=== PATIENT | male | born 1960 | race Two or more races ===

== ENCOUNTER 2020-05-27 14:53 | Emergency (ER) | payer OTHER ==
[~2020-05-27] VITALS: Ht 165.1 cm; Wt 91.6 kg
[~2020-05-27 14:53] MED LIST: CEFADROXIL500 MG PO; DICLOFENAC SODI75 MG PO; KETO10TA2 PO; SINGULAIR10 MG
[2020-05-27] MEDS ORDERED: SKELAXIN800 MG PO (18:11)
[2020-05-27] MEDS ORDERED: KETO10TA2 PO (18:11)
== END 2020-05-27 18:14 ==
LOC: ER 14:53
DX: M62.830 Muscle spasm of back (principal)

== ENCOUNTER 2022-12-21 21:22 | Emergency (ER) | payer OTHER ==
[~2022-12-21] VITALS: Ht 165.1 cm; Wt 95.3 kg
[~2022-12-21 21:22] MED LIST changes: +SKELAXIN800 MG PO
[2022-12-21] MEDS ORDERED: ATENOLOL-CHLORT1 TAB PO (21:52)
[2022-12-21] MEDS ORDERED: THEOPHYLLINE A300 M1 (21:52)
[2022-12-21] MEDS ORDERED: MONTELUKAST SOD10 MG PO (21:52)
[2022-12-21] MEDS ORDERED: VERAPAMIL HCL80 MG PO (21:52)
[2022-12-21] MEDS ORDERED: SYMBICORT 16010.2 GM IH (21:53)
[2022-12-21] MEDS ORDERED: LOSARTAN POTASS50 MG PO (21:53)
[2022-12-21] MEDS ORDERED: ALBUTEROL2.5 MG/3 M IH (21:53)
== END 2022-12-22 02:11 | disposition home or self-care (01) ==
LOC: ER 21:22
DX: J45.901 Unspecified asthma with (acute) exacerbation (principal); Z20.822 Contact with and (suspected) exposure to COVID-19

== ENCOUNTER 2024-12-17 13:12 | Emergency (ER) | payer OTHER ==
[~2024-12-17] VITALS: Ht 165.1 cm; Wt 95.3 kg
[~2024-12-17 13:12] MED LIST changes: +ALBUTEROL2.5 MG/3 M IH; +ATENOLOL-CHLORT1 TAB PO; +LOSARTAN POTASS50 MG PO; +MONTELUKAST SOD10 MG PO; +SYMBICORT 16010.2 GM IH; +THEOPHYLLINE A300 M1; +VERAPAMIL HCL80 MG PO
[2024-12-17] MEDS ORDERED: GUAIFENESIN/DEXTROMETHORPHAN 100MG/10ML BLIST.PACK PO ONE (15:45)
[2024-12-17] MEDS ORDERED: IPRATROPIUM/ALBUTEROL SULFATE 3 ML AMPUL.NEB IH SCH (15:45)
[2024-12-17] MEDS ORDERED: METHYLPREDNISOLONE SOD SUCC 125 MG VIAL IV ONE (15:45)
[2024-12-17 16:06] LABS: HEMATOCRIT 49.4 % (39.0-48.0); HEMOGLOBIN 16.5 g/dL (13-16.00); MEAN CELL VOLUME 88.8 fL (80.0-100.00); MEAN CORPUSCULAR HEMOGLOBIN 29.7 pg (27.00-32.0); MEAN CORPUSCULAR HGB CONC 33.5 g/dl (32.0-36.0); PLATELET COUNT 283 K/uL (150-450); RED BLOOD COUNT 5.57 M/uL (4.00-6.00); RED CELL DISTRIBUTION WIDTH 13.2 % (11.5-14.5)
[2024-12-17 16:22] LABS: ABG PH 7.431 (7.35-7.45); ABG PO2 81.2 mmHg (80-100); ABG pCO2 38.7 mmHg (35-45); BICARBONATE 25.2 mmol/l (23-25); SaO2 96.3 %; Tco2 26.3 mmol/l
[2024-12-17 16:31] LABS: BILIRUBIN TOTAL 1.64 mg/dL (0.3-1.2); CALCIUM 9.2 mg/dL (8.5-10.1); CREATININE SERUM 1.19 mg/dL (0.70-1.30); GFR 61.74; GLOBULINA 3.7 G/DL (2.4-3.5); POTASSIUM 4.31 mEq/L (3.5-5.1); TOTAL PROTEIN 7.7 gm/dL (6.4-8.2)
[2024-12-17 17:43] LABS: allen test SATISFACTORY; o2 21 %; puncture site RADIAL RIGHT
[2024-12-17] MEDS ORDERED: SINGULAIR10 MG PO (18:10)
[2024-12-17] MEDS ORDERED: IPRATROPIU0.2 MG/1 M IH (18:10)
[2024-12-17] MEDS ORDERED: TUSSIN DM LIQU118 ML PO (18:10)
[2024-12-17] MEDS ORDERED: MEDROLPACK PO (18:10)
[2024-12-17] MEDS ORDERED: AMOX-CLAV 875-1 EAC1 PO (18:10)
[2024-12-17] MEDS ORDERED: ALBUTEROL1.25 MG/3 IH (18:10)
[2024-12-17] MEDS ORDERED: KETOROLAC TROMETHAMINE 30 MG VIAL IV ONE (18:30)
[2024-12-17] MEDS ORDERED: CEFTRIAXONE SODIUM 1,000 MG VIAL IV ONE (18:30)
== END 2024-12-17 18:39 ==
LOC: ER 13:15
DX: J06.9 Acute upper respiratory infection, unspecified (principal); J45.909 Unspecified asthma, uncomplicated; H10.89 Other conjunctivitis